=== PATIENT | female | born 1990 | race Caucasian/White ===

== ENCOUNTER 2017-01-03 03:27 | Inpatient (IN) | payer OTHER ==
[2017-01-03] MEDS ORDERED: Dibucaine 1% 28.35 GM TUBE PR PRN (04:36)
[2017-01-03] MEDS ORDERED: Acetaminophen TAB* 325 MG PO PRN (04:36)
[2017-01-03] MEDS ORDERED: Tetan/Diph/Pertus SYR(Tdap)* 0.5 ML SYR(BOOSTRIX) use SYR IM ONE (04:36)
[2017-01-03] MEDS ORDERED: Glycerin ADULT SUPP PR PRN (04:36)
[2017-01-03] MEDS ORDERED: Witch Hazel PAD* JAR TOPICAL PRN (04:36)
[2017-01-03] MEDS ORDERED: Ibuprofen TAB* 600 MG ONE (04:38)
[2017-01-03] MEDS: Ibuprofen TAB* 600 MG PO PRN ×3 (04:43→20:12)
[2017-01-03] MEDS: Docusate CAP* 100 MG PO SCH ×3 (09:40→20:12)
[2017-01-03] MEDS: Simethicone CHEW TAB* 80 MG PO SCH (21:36)
[2017-01-04] MEDS: Ibuprofen TAB* 600 MG PO PRN ×2 (04:38→11:28)
[2017-01-04 07:48] LABS: Hematocrit 34 % (35-47); Hemoglobin 11.3 g/dl (12.0-16.0); Mean Corpuscular HGB Conc 33 g/dl (31-36); Mean Corpuscular Hemoglobin 29 pg (27-31); Mean Corpuscular Volume 89 fL (80-97); Mean Platelet Volume 8 um3 (7.4-10.4); Red Blood Count 3.83 10^6/ul (4.0-5.4); Red Cell Distribution Width 14 % (10.5-15)
[2017-01-04] MEDS ORDERED: Ferrous Gluconate TAB* 324 MG TAB PO SCH (09:00)
[2017-01-04] MEDS: Docusate CAP* 100 MG PO SCH (09:24)
[2017-01-04] MEDS ORDERED: SUMAtriptan SQ* 6 MG/0.5 ML VIAL SUBCUT ONE (10:10)
[2017-01-04 12:06] VITALS: BP 102/62
== END 2017-01-04 14:02 | disposition home or self-care (01) | DRG 775 ==
LOC: MCHOBOUT 03:27 → MCHOB 03:33
PROVIDERS: ADMIT Midwife; ATTEND Midwife
PROC: 10E0XZZ Delivery of Products of Conception, External Approach (ICD-10-PCS; principal; 2017-01-03)
DX: O48.0 Post-term pregnancy (principal); G43.109 Migraine with aura, not intractable, without status migrainosus; O26.893 Other specified pregnancy related conditions, third trimester; O69.81X0 Labor and delivery complicated by cord around neck, without compression, not applicable or unspecified; Z37.0 Single live birth; Z3A.40 40 weeks gestation of pregnancy
CPT/HCPCS: 36415; 85025; A9270-GY; J3030

== ENCOUNTER 2019-11-01 13:56 | Emergency (ER) | payer OTHER ==
--- OUTSIDE RECORDS SUMMARY | 2019-11-01 14:52 | XMS REPORT | Summary of Care ---
:1990 Author Organization [facility] Address [address] [place] [address] Care Team Providers Name Role Phone Leyda Lagos Primary Care Provider Reason for Visit Reason Comments Rash pt presents today due to a rash under right breast. Noticed it 1 wk ago. Encounter Details Date Type Department Care Team Description 09/26/2019 Office Visit [place] [facility] Amos Ely, Tinea versicolor Medicine PA (Primary Dx) [address] [place] [address] [place] [address] [phone] Allergies No Known Allergiesdocumented as of this encounter (statuses as of 09/26/2019) Medications Medication Sig Dispensed Refills Start Date End Date Status Levonorgestrel by Intrauterine 0 Active (MIRENA) 20 MCG/24HR route. Intrauterine IUD sumatriptan (IMITREX) [place] 20 mg in nose 6 Inhaler 1 02/15/2014 Active 20 MG/ACT Nasal ONCE NEEDED SolutionIndications: (headache). Migraines documented as of this encounter (statuses as of 09/26/2019) Active Problems Problem Noted Date Calculus of gallbladder without cholecystitis without obstruction 03/23/2019 Overview: 02/09 - incidental finding Pancreatic cyst 03/23/2019 Migraines 08/10/2011 Overview: Has been under care of [facility] Dr Mckay Dysmenorrhea 10/19/2007 documented as of this encounter (statuses as of 09/26/2019) Immunizations Name Administration Dates Next Due Human Papillomavirus 06/07/2007, 04/03/2007 MENINGOCOCCAL CONJUGATE VACCINE 04/03/2007 TDAP Vaccine 04/03/2007 documented as of this encounter Social History Tobacco Use Types Packs/Day Years Used Date Never Smoker 0 Smokeless Tobacco: Never Used Alcohol Use Drinks/Week oz/Week Comments Yes 1 Glasses of wine 1.0 Sex Assigned at Date Recorded Not on file Job Start Date Occupation Industry Not on file Not on file Not on file Travel History Travel Start Travel End No recent travel history available. documented as of this encounter Last Filed Vital Signs Vital Sign Reading Time Taken Comments Blood Pressure 98/70 09/26/2019 11:08 AM EST Pulse 85 09/26/2019 11:08 AM EST Temperature 36.6 09/26/2019 11:08 AM EST C (97.8 F) Respiratory Rate - - Oxygen Saturation 92% 09/26/2019 11:08 AM EST Inhaled Oxygen Concentration - - Weight 85.7 kg (189 lb) 09/26/2019 11:08 AM EST Height 180.3 cm (5' 11") 09/26/2019 11:08 AM EST Body Mass Index 26.36 09/26/2019 11:08 AM EST documented in this encounter Patient Instructions Patient InstructionsAmos Ely PA - 09/26/2019 11:00 AM ESTPatient Education Tinea Versicolor The Basics Written by the doctors and editors at [facility] What tinea versicolor?Tinea versicolor is a skin infection that causes areas of the skin to change color. The skin might have key carrier patches, darker patches, or both light and dark patches. Tinea versicolor is caused by a fungus. This fungus lives on people's skin and does not cause problems normally. But in some people, the fungus can cause tinea versicolor. This happens more often in people who live where the weather is hot and humid. Even though tinea versicolor is caused by fungus, it does not spread from one person to another. It is not "contagious." What are the symptoms of tinea versicolor?Tinea versicolor often appears as lots of small spots of color that seem to run into each other and form large patches. The colors can vary from white to light brown, dark brown, epstein-black or pinkish red. There can also be a mix of colors. Tinea versicolor usually shows up on the back, chest, or upper arms. It can also happen on the face or in places where the skin rubs together, such as the armpit. People often notice this problem more in the summer when affected areas of the skin stand out because they don't get hanks from the sun. Is there a test for tinea versicolor?Yes. After learning about your symptoms and doingan exam, your doctor or nurse might gently scrape the surface of your skin and look at the scrapingsunder a microscope. This procedure is usually not painful. If you have tinea versicolor, the doctor or nurse will see the fungus that causes the condition in the scrapings from your skin. How is tinea versicolor treated?Most mild cases of tinea versicolor only need a special "shampoo" or cream. The shampoo is used like a soap on the affected skin. If your tinea versicolor covers a large part of your body, or if it doesn't get better with the shampoo or cream, you might need medicine that comes in pills. Your doctor will decide if you need pills. Even after you get treated, your skin might not go back to its normal color for several months. Thisdoes not mean the treatment didn't work. It just takes time for the skin to heal. Can tinea versicolor be prevented?If the tinea versicolor keeps coming back, there areshampoos or medicines that can help prevent it. Your doctor will work with you on the best treatmentplan for your situation. All topics are updated as new evidence becomes available and our peer review process is complete. This topic retrieved from [employer] on: Aug 28, 2019. Topic 18164 Version 4.0 Release: 27.4.5 - C27.318 2019[employer], [employer]. and/or its affiliates.All rights reserved. picture 1: Tinea versicolor on the shoulder and arm Tinea versicolor. Reproduced with permission from: Samra HUDSON. Samra's Photoguide of Common Skin Disorders, 2nd ed, Jaison Armond&Brower, Sunflower 2003. Copyright 2002 Jaison Armond&Brower. Graphic 51531 Version 2.0 picture 2: Tinea versicolor on the back Tinea versicolor can appear as a mixture of colors. Reproduced with permission from: David Barros. [place] of Adult Physical Diagnosis, Jaison Armond&Brower, Sunflower 2005. Copyright 2006 Jaison Armond&Brower. Graphic 15027 Version 2.0 picture 3: Tinea versicolor on the chest Tinea versicolor can appear as dark patches on the skin. Photo courtesy of Juan F Perez MD. Reproduced from: Munoz EK, Koko JA, Justino GA , Chris PS (Eds). Visual Diagnosis in Pediatrics. Sunflower: Jaison Armond&Brower, 2006. Copyright 2006. Graphic 37087 Version 2.0 Consumer Information Use and Disclaimer This information is not specific medical advice and does not replace information you receive from your health care provider. This is only a brief summary of general information. It does NOT include allinformation about conditions, illnesses, injuries, tests, procedures, treatments, therapies, discharge instructions or life-style choices that may apply to you. You must talk with your health care provider for complete information about your health and treatment options. This information should not beused to decide whether or not to accept your health care provider's advice, instructions or recommendations. Only your health care provider has the knowledge and training to provide advice that is right for you.The use of [employer] content is governed by the [employer] Terms of Use. 2019 [employer]. All rights reserved. Copyright [employer]. and/or its affiliates.All rights reserved. documented in this encounter Progress Notes Amos Ely PA - 09/26/2019 11:00 AM EST PATIENT: Ayleen Tinajero : 1990 DATE OF SERVICE: 09/26/2019 REFERRING PRACTITIONER: Self-Referred PRIMARY CARE PROVIDER: Leyda Lagos CHIEF COMPLAINT: Chief Complaint Patient presents with Rash pt presents today due to a rash under right breast. Noticed it 1 wk ago. Subjective HISTORY OF PRESENT ILLNESS: Ayleen Tinajero is a 29-y.o. female who presents for a new visit. Ayleen Tinajero complains of a(n) rash. Patient describes as red. Distribution: Below the breast. Onset: gradual over a few weeks. Symptoms have been unchanged. Ayleen Tinajero reports that the affected area itches. Associated signs and symptoms: no associated symptoms. The patient denies: fever, nausea. Environmental exposures or allergies: nothing specific Previous visits for this problem: none. Treatment to date: none. 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 History pancreatic cyst. Current Outpatient Medications Medication Sig Levonorgestrel (MIRENA) 20 MCG/24HR Intrauterine IUD by Intrauterine route. sumatriptan (IMITREX) 20 MG/ACT Nasal Solution [place] 20 mg in nose ONCE NEEDED (headache). No current facility-administered medications for this visit. No Known Allergies Social History Socioeconomic History Marital status: Single Spouse name: Not on file Number of children: Not on file Years of education: Not on file Highest education level: Not on file Occupational History Not on file Social Needs Financial resource strain: Not on file Food insecurity: Worry: Not on file Inability: Not on file Transportation needs: Medical: Not on file Non-medical: Not on file Tobacco Use Smoking status: Never Smoker Smokeless tobacco: Never Used Substance and Sexual Activity Alcohol use: Yes Alcohol/week: 1.0 standard drinks Types: 1 Glasses of wine per week Drug use: No Sexual activity: Yes Partners: Male Lifestyle Physical activity: Days per week: Not on file Minutes per session: Not on file Stress: Not on file Relationships Social connections: Talks on phone: Not on file Gets together: Not on file Attends denominational service: Not on file Active member of club or organization: Not on file Attends meetings of clubs or organizations: Not on file Relationship status: Not on file Intimate partner violence: Fear of current or ex partner: Not on file Emotionally abused: Not on file Physically abused: Not on file Forced sexual activity: Not on file Other Topics Concern Back Care Not Asked Bike Helmet Not Asked Blood Transfusions Not Asked Caffeine Concern Not Asked Exercise Yes Comment: runs 3-4 days per week Hobby Hazards Not Asked International Travel Not Asked Service Not Asked Occupational Exposure Not Asked Seat Belt Not Asked Self-Exams Not Asked Sleep Concern Not Asked Special Diet No Stress Concern No Weight Concern No Social History Narrative . Lives in [facility] area Works at [employer] REVIEW OF SYSTEMS: CONSTITUTIONAL: negative for fevers, chills, sweats and fatigue. INTEGUMENT/BREAST: positive for rash, negative for breast lump, nipple discharge and breast tenderness. Objective PHYSICAL EXAMINATION: GENERAL: alert, oriented, no acute distress. GENERAL SKIN: Skin warm and dry. Below left breast fold shows a small patch of non-scaling, non-raised erythematous lesions, consistent with that of tinea versicolor. IMPRESSION: ICD-9-CM ICD-10-CM 1. Tinea versicolor 111.0 B36.0 Plan PLAN: Advised to use selenium sulfide shampoo or lotion on the region to function as an antifungal. She has also been told to use a drying powder and to air the region as much as possible, given fungal infections develop as a result of warm , wet areas. Follow up: Schedule follow-up here as needed if symptoms worsen. Author: PIYUSH Sanchez 09/26/2019 11:55 documented in this encounter Plan of Treatment Health Maintenance Due Date Last Done Comments HPV IMMUNIZATION SERIES (3 - 10/03/2007 06/07/2007, Female 3-dose series) 04/03/2007 INFLUENZA VACCINE (#1) 2019 DEPRESSION SCREENING 03/23/2020 03/23/2019 LIPID DISORDER SCREENING 07/28/2024 07/28/2019, 02/01/2019 MENINGOCOCCAL VACCINE IMM Completed 04/03/2007 PNEUMOCOCCAL 0-64 YRS Aged Out No longer eligible based on patient's age to complete this topic documented as of this encounter Results Not on filedocumented in this encounter Visit Diagnoses Diagnosis Tinea versicolor - Primary Pityriasis versicolor documented in this encounter Insurance Payer Benefit Plan / Subscriber ID Effective Dates Phone Address Type Group AET[employer] COMMERCIAL AETNA xxxxxxxxxx 2018-Present A[employer] (Work) documented as of this encounter
--- OUTSIDE RECORDS SUMMARY | 2019-11-01 14:52 | XMS REPORT | Summary of Care ---
:1990 Author Organization [facility] Address [address] [place] [address] Care Team Providers Name Role Phone Anne Lagosh Primary Care Provider Reason for Referral Refer to Department Only (Routine) Status Reason Specialty Diagnoses / Referred By Referred To Procedures Contact Contact Pending Review Diagnoses Cystic mass of pancreas Mariana Schwartz NP [address] [place] [address] Scheduling Instructions Is the patient on cpap machine?No Is the patient on oxygen?No BP 100/70 | Pulse 72 | Temp 98.6 F (37 C) | Ht 5' 11" (1.803 m) | Wt 188 lb (85.3 kg) | BMI 26.22 kg/m BMI Readings from Last 4 Encounters: 09/25/19 : 26.22 kg/m 09/18/19 : 26.27 kg/m 03/23/19 : 26.50 kg/m 02/28/19 : 26.08 kg/m Controlled Substance Medications: Anticoagulant Medications: Psychiatric/Antianxiety Medications: Antiretroviral Medications: Reason for Visit Reason Comments Follow-up Follow-up to recent EUS. Encounter Details Date Type Department Care Team Description 09/25/2019 Office Visit Robert Schwartz Pancreatic cyst (Primary Dx); Gastroenterology/Hepa Mariana Baeza NP Cystic mass of pancreas tology 1 [facility] [address] [facility] [place] [id number] [place] [address] [phone] Allergies No Known Allergiesdocumented as of this encounter (statuses as of 09/25/2019) Medications Medication Sig Dispensed Refills Start Date End Date Status Levonorgestrel by Intrauterine 0 Active (MIRENA) 20 MCG/24HR route. Intrauterine IUD sumatriptan (IMITREX) [place] 20 mg in nose 6 Inhaler 1 02/15/2014 Active 20 MG/ACT Nasal ONCE NEEDED SolutionIndications: (headache). Migraines documented as of this encounter (statuses as of 09/25/2019) Active Problems Problem Noted Date Calculus of gallbladder without cholecystitis without obstruction 03/23/2019 Overview: 02/09 - incidental finding Pancreatic cyst 03/23/2019 Migraines 08/10/2011 Overview: Has been under care of [facility] Mckay Dysmenorrhea 10/19/2007 documented as of this encounter (statuses as of 09/25/2019) Immunizations Name Administration Dates Next Due Human [...] Sign Reading Time Taken Comments Blood Pressure 100/70 09/25/2019 1:55 PM EST Pulse 72 09/25/2019 1:55 PM EST Temperature 37 09/25/2019 1:55 PM EST C (98.6 F) Respiratory Rate - - Oxygen Saturation - - Inhaled Oxygen Concentration - - Weight 85.3 kg (188 lb) 09/25/2019 1:55 PM EST Height 180.3 cm (5' 11") 09/25/2019 1:55 PM EST Body Mass Index 26.22 09/25/2019 1:55 PM EST documented in this encounter Patient Instructions Patient InstructionsMariana Schwartz J, MEDIA CLERK - 09/25/2019 2:[address] referral for second opinion at [facility] as discussed 2. Follow up here based on the above If you have not already been screened for Hepatitis C we would be happy to do that for you today. Currently we recommend screening for hepatitis C virus (HCV ) infection in persons at high risk for infection, and to adults born between 1945 and 1965. Thank you for choosing the [facility] for your needs today! -Mariana Schwartz N.P. , Please call if you need to cancel or change your appt. time. Thank you for choosing [facility] for your health care needs, and for consulting with [facility] today. You may receive a survey following this visit, or after an upcoming hospital stay. As easy as it is to feel overloaded with surveys, we are required to send them out randomly and they do provide important feedback so that we may serve your needs in the best way. Please do take the few minutes required to complete the survey if you receive one. We get them too, after seeing the doctor, and they only take a few minutes to complete. documented in this encounter Progress Notes Mariana Schwartz NP - 09/25/2019 2:00 PM EST PATIENT: Ayleen Tinajero : 1990 DATE OF SERVICE: 09/25/2019 REFERRING PRACTITIONER: Mariana Schwartz PRIMARY CARE PROVIDER: Leyda Lagos CHIEF COMPLAINT: Chief Complaint Patient presents with Follow-up Follow-up to recent EUS. Subjective HISTORY OF PRESENT ILLNESS: Ayleen Tinajero is a 29-y.o. female who presents for follow-up of recent EUS in follow up of a pancreatic lesion found on imaging studies. EUS 09/18/2019 findings "Impression- There was no sign of significant pathology in the ampulla. - One stone was visualize endosonographically in the gallbladder. - There was no evidence of significant pathology inthevisualized portion of the liver. - A mass was identified in the pancreatic head. Cytology results are pending. However, the endosonographic appearance is consistent with a serous cystadenoma. This was staged T2 N0 Mx by endosonographic criteria. The staging applies if malignancy is confirmed. Fine needle aspiration performed. - Endosonographic images of the spleen were unremarkable." Pathology of the FNA of pancreatic lesion: FINAL DIAGNOSIS Pancreatic head mass; fine needle aspiration cytology: Satisfactory for evaluation. Negative for malignant cells. Immediate Assessment Pass#1: benign acinar tissue and blood Pass#2: benign acinar tissue and blood Preliminary diagnosis: Benign 08/17/2019 MR abdomen "IMPRESSION: Pancreatic head lesion again seen, not significantly changed in size since prior MRI dated February 09, 2019 with no pancreatic duct dilatation. 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 Denies abdominal pain, heartburn, dysphagia, fatigue, nausea, vomiting, melena, hamatemesis, hematochezia, constipation, diarrhea, jaundice, fevers, chills, night sweats, weight loss, easy bruising, chest pain, shortness of breath, dysuria, hematuria, pyuria, joint pains, acholic stools, dark urine orsystemic pruritis. Current Outpatient Medications Medication Sig Levonorgestrel (MIRENA) 20 MCG/24HR Intrauterine IUD by Intrauterine route. sumatriptan (IMITREX) 20 MG/ACT Nasal Solution [place] 20 mg in nose ONCE NEEDED (headache). No current facility-administered medications for this visit. No Known Allergies REVIEW OF SYSTEMS: All remaining review of systems was negative except for as noted in the history of present illness/subjective. Objective PHYSICAL EXAMINATION: VITALS: BP 100/70 | Pulse 72 | Temp 98.6 F (37 C) | Ht 5' 11" ( 1.803 m) | Wt 188 lb (85.3 kg) | BMI 26.22 kg/m Body mass index is 26.22 kg/m. GENERAL: alert, oriented, no acute distress. HEENT: No scleral icterus, MMM Psych: Affect normal Neck: no lymphadenopathy LUNGS: clear to auscultation bilaterally. HEART: regular rhythm, no murmurs, no gallops, no rubs. ABDOMEN: general exam: soft, non-tender, non-distended, without masses or organomegaly, normal active bowel sounds, Rodgers's sign negative. Extrmities: no edema Skin: clear Neuro: gait normal, a&o x 3 RECTAL: exam deferred. IMPRESSION: ICD-9-CM ICD-10-CM 1. Pancreatic cyst 577.2 K86.2 2. Cystic mass of pancreas 577.2 K86.2 REFER TO GI Plan PLAN: Patient Instructions 1. Will place referral for second opinion at [facility] as discussed 2. Follow up here based on the above If you have not already been screened for Hepatitis C we would be happy to do that for you today. Currently we recommend screening for hepatitis C virus (HCV ) infection in persons at high risk for infection, and to adults born between 1945 and 1965. Thank you for choosing the [facility] for your needs today! -Mariana Schwartz N.P. , Please call if you need to cancel or change your appt. time. Thank you for choosing [facility] for your health care needs, and for consulting with [facility] today. You may receive a survey following this visit, or after an upcoming hospital stay. As easy as it is to feel overloaded with surveys, we are required to send them out randomly and they do provide important feedback so that we may serve your needs in the best way. Please do take the few minutes required to complete the survey if you receive one. We get them too, after seeing the doctor, and they only take a few minutes to complete. Author: Mariana Schwartz NP 09/25/2019 14:20 documented in this encounter Plan of Treatment Date Type Specialty Care Team Description 09/26/2019 Office Visit Internal Medicine Amos Ely, [address] [place] [address] [phone] Name Type Priority Associated Diagnoses Order Schedule REFER TO GI Referral Routine Cystic mass of pancreas Expected: 09/25/2019, Expires: 09/25/2020 Health Maintenance Due Date Last Done Comments [...] filedocumented in this encounter Visit Diagnoses Diagnosis Pancreatic cyst - Primary Cyst and pseudocyst of pancreas Cystic mass of pancreas documented in this encounter Insurance Payer Benefit Plan / Subscriber ID Effective Dates Phone Address Type Group A[employer] COMMERCIAL AETNA xxxxxxxxxx 2018-Present [employer] (Work) documented as of this encounter
--- OUTSIDE RECORDS SUMMARY | 2019-11-01 14:52 | XMS REPORT | Summary of Care ---
:1990 Author Organization [facility] Address [address] [place] [address] Care Team Providers Name Role Phone Radha Lagos Primary Care Provider Reason for Visit Auth/Cert Status Reason Specialty Diagnoses / Procedures Referred By Referred To Contact Contact Diagnoses Abnormal findings on diagnostic imaging of other abdominal regions, including retroperitoneum Cyst of pancreas Procedures IL ESOPHAGOGASTRODUODENOSCOPY TRANSORAL DIAGNOSTIC IL EGD TRANSORAL BIOPSY SINGLE/MULTIPLE IL EGD INTRMURAL NEEDLE ASPIR/BIOP ALTERED ANATOMY IL EDG US EXAM SURGICAL ALTER STOM DUODENUM/JEJUNUM IL ERCP DX COLLECTION SPECIMEN BRUSHING/WASHING IL ERCP W/BIOPSY SINGLE/MULTIPLE IL ERCP REMOVE CALCULI/DEBRIS BILIARY/PANCREAS DUCT Encounter Details Date Type Department Care Team Description 09/18/2019 Hospital Encounter [facility] Rin Ray Short Procedure [address] [place] [id number] [address] [phone] [place] [address] [phone] Allergies No Known Allergiesdocumented as of this encounter (statuses as of 09/19/2019) Medications Medication Sig Dispensed Refills Start Date End Date Status Levonorgestrel by Intrauterine 0 Active (MIRENA) 20 MCG/24HR route. Intrauterine IUD sumatriptan (IMITREX) [place] 20 mg in nose 6 Inhaler 1 02/15/2014 Active 20 MG/ACT Nasal ONCE NEEDED SolutionIndications: (headache). Migraines documented as of this encounter (statuses as of 09/19/2019) Active Problems Problem Noted Date Calculus of gallbladder without cholecystitis without obstruction 03/23/2019 Overview: 02/09 - incidental finding Pancreatic cyst 03/23/2019 Migraines 08/10/2011 Overview: Has been under care of eddie - Dr Mckay Dysmenorrhea 10/19/2007 documented as of this encounter (statuses as of 09/19/2019) Immunizations Name Administration Dates Next Due Human [...] Sign Reading Time Taken Comments Blood Pressure 106/77 09/18/2019 2:05 PM EST Pulse 80 09/18/2019 2:05 PM EST Temperature 36.8 09/18/2019 2:05 PM EST C (98.2 F) Respiratory Rate 20 09/18/2019 2:05 PM EST Oxygen Saturation 99% 09/18/2019 2:05 PM EST Inhaled Oxygen Concentration - - Weight 85.4 kg (188 lb 6 oz) 09/18/2019 11:33 AM EST Height 180.3 cm (5' 11") 09/18/2019 11:33 AM EST Body Mass Index 26.27 09/18/2019 11:33 AM EST documented in this encounter Discharge Summaries Rin Ray MD - 09/18/2019 12:55 PM ESTGUTHRIE SP/OP DISCHARGE NOTE [address] [place] [address] Patient: Ayleen Tinajero Procedure Date: 09/18/2019 Principle Diagnosis: Serous cyst adenoma Associated Condition(s): Same as Pre-op Procedure: EGD; endoscopic ultrasound (EUS); fine needle aspiration (FNA). Mental Status: Unchanged from preoperative condition; alert and oriented unless otherwise indicated. Condition: Stable, unless otherwise indicated. Diet: Resume routine diet as instructed unless otherwise indicated. Activity: ad fuad Length of disability: Not applicable Suture Removal: Not applicable Wound Care: Not applicable Medications: See Med Rec Other Comments: See printed reports from [facility] for additional information. Author: Rin Ray MD Date: 09/18/2019 documented in this encounter Plan of Treatment Date Type Specialty Care Team Description 09/25/2019 Office Visit Gastroenterology Mariana Grullon, PERIODICALS CLERK [address] [place] [place] [address] [phone] Name Type Priority Associated Diagnoses Date/Time FINE NEEDLE ASPIRATION Lab Routine Mass of pancreas 09/18/2019 12:44 PM EST Name Type Priority Associated Order Schedule Diagnoses EUS Diagnostic/Surgical Routine TOMORROW - GENERAL Procedures USE for 1 Occurrences starting 09/18/2019 until 09/18/2019 GLUCOSE (POCT) Automated POCT Routine X1 for 1 Occurrences starting 09/18/2019 until 09/18/2019 FINE NEEDLE Lab Routine Mass of pancreas Release Upon ASPIRATION Ordering for 1 Occurrences starting 09/18/2019, 1 completed Health Maintenance Due Date Last Done Comments HPV IMMUNIZATION SERIES (3 - 10/03/2007 06/07/2007, Female 3-dose series) 04/03/2007 INFLUENZA VACCINE (#1) 2019 DEPRESSION SCREENING 03/23/2020 03/23/2019 LIPID DISORDER SCREENING 07/28/2024 07/28/2019, 02/01/2019 MENINGOCOCCAL VACCINE IMM Completed 04/03/2007 PNEUMOCOCCAL 0-64 YRS Aged Out No longer eligible based on patient's age to complete this topic documented as of this encounter Procedures Procedure Name Priority Date/Time Associated Comments Diagnosis ENDOSCOPY UPPER GI Planned Trip to 09/18/2019 12:00 OR PM EST ENDOSCOPIC ULTRASOUND Planned Trip to 09/18/2019 12:00 OR PM EST SIGN PERMIT 09/18/2019 12:00 PM EST UPPER GI ENDOSCOPY Routine 09/18/2019 11:58 Results for REPORT AM EST this procedure are in the results section. EUS Routine 09/18/2019 11:58 Results for AM EST this procedure are in the results section. URINE (POCT) Routine 09/18/2019 11:17 Results for AM EST this procedure are in the results section. US TRANSESOPHAGEAL Routine 09/18/2019 11:00 Results for ENDOSCOPIC AM EST this procedure are in the results section. documented in this encounter Results UPPER GI ENDOSCOPY REPORT (09/18/2019 11:58 AM EST) Upper GI endoscopy [facility] __ Patient Name: Ayleen Tinajero Procedure Date: 09/18/2019 11:58 AM Date of : 1990 Admit Type: Outpatient Age: 29 Room: OR Gender: Female Note Status: Finalized Attending MD: RIN RAY MD Instrument Name: [id number] [id number] __ Procedure: Upper GI endoscopy Indications: Heartburn, Epigastric abdominal pain Providers: RIN RAY MD, RENE ROBERSON MD, Alessandra Bolanos RN (Nurse), Blessing Benitez (Nurse) Referring MD: MARIANA GRULLON NP (Referring MD) Medicines: Monitored Anesthesia Care Complications: No immediate complications. Estimated blood loss: None. __ Procedure: Pre-Anesthesia Assessment: - Prior to the procedure, a History and Physical was performed, and patient medications, allergies and sensitivities were reviewed. The patient's tolerance of previous anesthesia was reviewed. - The risks and benefits of the procedure and the sedation options and risks were discussed with the patient. All questions were answered and informed consent was obtained. - Patient identification and proposed procedure were verified prior to the procedure. The procedure was verified in the procedure room. The patient's current medications and allergies were reviewed and recorded in the nurses notes. The patient was made aware of the risk of the procedure which can include: bleeding, infection, perforation, an adverse reaction to sedation, and a risk of missed lesions, among others. The patient appeared to understand. An opportunity for questions was provided, and an informed consent form was signed. The scope was passed under direct vision. Throughout the procedure, the patient's blood pressure, pulse EKG, and oxygen saturations were monitored continuously. The Endoscope was introduced through the mouth, and advanced to the third part of duodenum. COMMENT: UNREMARKABLE EXAMINATION. The upper GI endoscopy was accomplished without difficulty. The patient tolerated the procedure well. Findings: The esophagus was normal. The stomach was normal. The examined duodenum was normal. Impression: - Normal esophagus. - Normal stomach. - Normal examined duodenum. - No specimens collected. Recommendation: - Discharge patient to home. - Patient has a contact number available for emergencies. The signs and symptoms of potential delayed complications were discussed with the patient. Return to normal activities tomorrow. Written discharge instructions were provided to the patient. - Resume previous diet. - Continue present medications. Procedure Code(s): --- Professional --- 94505, GC, Esophagogastroduodenoscopy, flexible, transoral; diagnostic, including collection of specimen(s) by brushing or washing, when performed (separate procedure) Diagnosis Code(s): --- Professional --- R12, Heartburn R10.13, Epigastric pain CPT copyright 2017 [place] [employer]. All rights reserved. The codes documented in this report are preliminary and upon mural artist review may be revised to meet current compliance requirements. Attending Participation: I personally performed the entire procedure. RIN RAY MD 09/18/2019 12:23:51 PM This report has been signed electronically. Number of Addenda: 0 Note Initiated On: 09/18/2019 11:58 AM CC Letter to: RADHA LAGOS MD (CC) Specimen Performing Organization Address City/State/Zipcode Phone Number HOMA EUS (09/18/2019 11:58 AM EST) Upper EUS [facility] __ Patient Name: Ayleen Tinajero Procedure Date: 09/18/2019 11:58 AM Date of : 1990 Admit Type: Outpatient Age: 29 Room: OR Gender: Female Note Status: Finalized Attending MD: RIN RAY MD Instrument Name: [id number] GF UE 160-AL5 EUS RADIAL,0748 GF UC 140P-AL5 LINEAR __ Procedure: Upper EUS Indications: Suspected mass in pancreas on MRI Providers: RIN RAY MD, Alessandra Bolanos, JIMMY (Nurse), Blessing Benitez (Nurse) Referring MD: MARIANA GRULLON NP (Referring MD) Medicines: Monitored Anesthesia Care Complications: No immediate complications. Estimated blood loss: None. __ Procedure: Pre-Anesthesia Assessment: - Prior to the procedure, a History and Physical was performed, and patient medications, allergies and sensitivities were reviewed. The patient's tolerance of previous anesthesia was reviewed. - The risks and benefits of the procedure and the sedation options and risks were discussed with the patient. All questions were answered and informed consent was obtained. - Patient identification and proposed procedure were verified prior to the procedure. The procedure was verified in the procedure room. After obtaining informed consent, the endoscope was passed under direct vision. Throughout the procedure, the patient's blood pressure, pulse, and oxygen saturations were monitored continuously. The Endosonoscope was introduced through the mouth, and advanced to the fourth part of duodenum. The Endosonoscope was introduced through the mouth, and advanced to the fourth part of duodenum. The upper EUS was accomplished without difficulty. The patient tolerated the procedure well. COMMENT: FINDINGS ON SONOGRAPHY AND FNA PRELIMINARY VIEW CONSISTENT WITH SEROUS CYST ADENOMA. BLAD CELLS AND STROMAL ELEMENTS IN A SEA OF RED CELLS. Findings: ENDOSONOGRAPHIC FINDING: : There was no sign of significant endosonographic abnormality in the ampulla. No masses, no cysts, no calcifications and no wall thickening were identified. One stone was visualized endosonographically in the gallbladder. The stone measured 8 mm in greatest dimension. The stone was round. It was hyperechoic and characterized by shadowing. There was no sign of significant endosonographic abnormality in the visualized portion of the liver. No focal pathology was identified. A round mass was identified in the pancreatic head. The mass was hypoechoic and mixed solid and cystic. The mass measured 39 mm by 49 mm in maximal cross-sectional diameter. The endosonographic borders were well-defined. The remainder of the pancreas was examined. The endosonographic appearance of parenchyma and the upstream pancreatic duct indicated that the remainder of the pancreas was unremarkable. Fine needle aspiration for cytology was performed. Color Doppler imaging was utilized prior to needle puncture to confirm a lack of significant vascular structures within the needle path. Two passes were made with the 25 gauge needle using a transduodenal approach. A stylet was used. A senior chemist was present and performed a preliminary cytologic examination. The cellularity of the specimen was adequate. Final cytology results are pending. Verification of patient identification for the specimen was done by the physician and nurse using the patient's name and date. Estimated blood loss was minimal. There was no sign of significant endosonographic abnormality in the visualized portion of the spleen. No focal pathology was identified. The region of the celiac plexus and celiac ganglia was visualized and showed no sign of significant endosonographic abnormality. The vascular anatomy of the region was normal. Impression: - There was no sign of significant pathology in the ampulla. - One stone was visualized endosonographically in the gallbladder. - There was no evidence of significant pathology in the visualized portion of the liver. - A mass was identified in the pancreatic head. Cytology results are pending. However, the endosonographic appearance is consistent with a serous cystadenoma. This was staged T2 N0 Mx by endosonographic criteria. The staging applies if malignancy is confirmed. Fine needle aspiration performed. - Endosonographic images of the spleen were unremarkable. Recommendation: - Discharge patient to home when stable - Continue present medications unless instructed otherwise - Follow-up with the referring practitioner - Resume typical diet - Rest today - Contact your doctor or come to the emergency department if you experience: - worsening abdominal pain - fever greater than 101.5 degrees - persistent nausea, vomiting - any blood in stool or vomiting of blood - chills, sweats, or other symptoms that persist Procedure Code(s): --- Professional --- 79699, Esophagogastroduodenoscopy, flexible, transoral; with transendoscopic ultrasound-guided intramural or transmural fine needle aspiration/biopsy(s), (includes endoscopic ultrasound examination limited to the esophagus, stomach or duodenum, and adjacent structures) Diagnosis Code(s): --- Professional --- K80.20, Calculus of gallbladder without cholecystitis without obstruction K86.89, Other specified diseases of pancreas R93.3, Abnormal findings on diagnostic imaging of other parts of digestive tract CPT copyright 2017 [place] [employer]. All rights reserved. The codes documented in this report are preliminary and upon mural artist review may be revised to meet current compliance requirements. Attending Participation: I personally performed the entire procedure. RIN RAY MD 09/18/2019 1:04:16 PM This report has been signed electronically. Number of Addenda: 0 Note Initiated On: 09/18/2019 11:58 AM CC Letter to: RADHA LAGOS MD (CC) Specimen Performing Organization Address City/State/Zipcode Phone Number [facility] URINE (POCT) (09/18/2019 11:17 AM EST) Urine Test negative POINT OF CARE (POCT) TESTING Qualitative Urine acceptable POINT OF CARE HCG Internal Control Comment: TESTING (POCT) Performed at: [facility] POCT Sukhjinder Avendano MD, Laboratory Bacteriologist Food [address] [address] Specimen Performing Organization Address City/State/Zipcode Phone Number POINT OF CARE TESTING US TRANSESOPHAGEAL ENDOSCOPIC (09/18/2019 11:00 AM EST) Specimen Narrative Performed At Please see performing physicians notes for results of this exam. [facility] POCT Performing Organization Address [facility] Phone Number [facility] POCT [address] [place] [address] documented in this encounter Visit Diagnoses Diagnosis Mass of pancreas Unspecified disease of pancreas documented in this encounter Administered Medications Medication Order MAR Action Action Date Dose Rate Site lactated ringers IV Intravenous, at 100 mL/hr, PRU CONTINUOUS, Starting Tue09/18/19 at 1310, Until Tue09/18/19 at 1626, 4 Recovery, PRU, ondansetron (ZOFRAN) injection 4 mg 4 mg, Intravenous Push, PRU X1 PRN, 1 dose, Starting Tue09/18/19 at 1306, Until Tue09/18/19 at 1626, Nausea/Vomiting - IV - 1st line - If immediate effect required or patient cannot tolerate PO, 4 Recovery documented in this encounter Insurance Payer Benefit Plan / Subscriber ID Effective Dates Phone Address Type Group [employer]CIAL AETNA xxxxxxxxxx 2018-Present [employer] (Work) documented as of this encounter
[2019-11-01] MEDS ORDERED: Acetaminophen TAB* 325 MG PO ONE (15:38)
[2019-11-01] MEDS ORDERED: Ondansetron ODT TAB* 4 MG PO ONE (15:38)
[2019-11-01 15:55] LABS: ABS Lymphocytes 1.5 10^3/ul (1.0-4.8); ABS Monocytes 0.6 10^3/ul (0-0.8); ABS Neutrophils 3.7 10^3/ul (1.5-7.7); Eosinophil % 0.2 %; Hematocrit 41 % (35-47); Hemoglobin 13.9 g/dL (12.0-16.0); Lymphocyte % 25.1 %; Mean Corpuscular HGB Conc 34 g/dL (31-36); Mean Corpuscular Hemoglobin 30 pg (27-31); Mean Corpuscular Volume 87 fL (80-97); Mean Platelet Volume 8.7 fL (7.4-10.4); Nucleated Red Blood Cells % 0.1; Platelet Count 215 10^3/uL (150-450); Red Blood Count 4.66 10^6 /uL (3.70-4.87); Red Cell Distribution Width 13 % (10-15); White Blood Count 5.8 10^3/uL (3.5-10.8)
[2019-11-01 16:12] LABS: ALT 20 U/L (7-52); AST 23 U/L (13-39); Albumin 4.6 g/dL (3.2-5.2); Albumin/Globulin Ratio 1.3 (1-3); Alkaline Phosphatase 57 U/L (34-104); Anion Gap 9 mmol/L (2-11); BUN/Creatinine Ratio 12.3 (8-20); Blood Urea Nitrogen 10 mg/dL (6-24); CO2 Carbon Dioxide 23 mmol/L (22-32); Calcium 8.7 mg/dL (8.6-10.3); Chloride 102 mmol/L (101-111); EGFR African American 99.8 (>60); EGFR Non-African American 82.5 (>60); Globulin 3.6 g/dL (2-4); Glucose 93 mg/dL (70-100); Potassium 3.8 mmol/L (3.5-5.0); Sodium 134 mmol/L (135-145); Total Protein 8.2 g/dL (6.4-8.9)
[2019-11-01 16:16] LABS: HCG Pregnancy < 0.60 mIU/mL
[2019-11-01] MEDS ORDERED: NS 0.9% 1000 ML** 1,000 ML IV ONE (17:03)
--- NOTE | 2019-11-01 17:35 | ED ---
HPI Febrile Illness - HPI Summary HPI Summary: 29-year-old female presents flu for the past two days. She got sick on Tuesday and was diagnosed with the flu. she took tamiflu and felt worse. She became very nauseous and developed abdominal pain. she states she has not been able to keep anything down. She's been having cough. Cough has been about the same. She admits to sinus congestion. Has a headache. States feels very weak and dizzy. She has all over muscle aches. Has no medical conditions. - History of Current Complaint Chief Complaint: EDFluSymptoms Time Seen by Provider: 11/01/19 16:47 Hx Last Menstrual Period: 22 weeks ago Pain Intensity: 6 - Allergy/Home Medications Allergies/Adverse Reactions: Allergies Allergy/AdvReac Type Severity Reaction Status Date / Time chocolate flavor Allergy Headache Verified 01/21/19 19:00 passion fruit Allergy Headache Uncoded 01/21/19 19:00 pomegranite Allergy Headache Uncoded 01/21/19 19:00 red dye 40 Allergy Headache Uncoded 01/21/19 19:00 PMH/Surg Hx/FS Hx/Imm Hx Endocrine/Hematology History: Denies: Hx Diabetes, Hx Thyroid Disease Cardiovascular History: Denies: Hx Congestive Heart Failure, Hx Hypertension Respiratory History: Denies: Hx Asthma, Hx Chronic Obstructive Pulmonary Disease (COPD) GI History: Denies: Hx Ulcer History: Denies: Hx Renal Disease Musculoskeletal History: Denies: Hx Gout Sensory History: Denies: Hx Eye Prosthesis, Hx Legally Blind, Hx Deafness Opthamlomology History: Denies: Hx Eye Prosthesis, Hx Legally Blind Neurological History: Reports: Hx Migraine - Surgical History Surgery Procedure, Year, and Place: wisdom tooth extracted - 2014 - Immunization History Date of Tetanus Vaccine: unknown Date of Influenza Vaccine: UTD Immunizations Up to Date: Yes Infectious Disease History: Yes Infectious Disease History: Reports: Traveled Outside the [place] in Last 30 Days Denies: Hx Clostridium Difficile, Hx Hepatitis, Hx Human Immunodeficiency Virus (HIV), Hx of Known/Suspected MRSA, Hx Shingles, Hx Tuberculosis, Hx Known/ Suspected VRE, Hx Known/Suspected VRSA, History Other Infectious Disease - Family History Known Family History: Positive: None, Diabetes, Other - Migraine, Parkinsons Disease - Social History Alcohol Use: None Substance Use Type: Reports: None Smoking Status (MU): Never Smoked Tobacco Review of Systems Positive: Fever Negative: Chest Pain Positive: Cough. Negative: Shortness Of Breath Positive: Abdominal Pain, Vomiting, Nausea All Other Systems Reviewed And Are Negative: Yes Physical Exam Triage Information Reviewed: Yes Vital Signs On Initial Exam: Initial Vitals Temp Pulse Resp BP Pulse Ox 99.1 F 104 18 114/84 100 11/01/19 14:00 11/01/19 14:00 11/01/19 14:00 11/01/19 14:00 11/01/19 14:00 Vital Signs Reviewed: Yes Appearance: Positive: Well-Appearing Skin: Positive: Warm, Dry Head/Face: Positive: Normal Head/Face Inspection Eyes: Positive: Normal, EOMI, CHANI, Conjunctiva Clear ENT: Positive: Normal ENT inspection, Pharynx normal, TMs normal Respiratory/Lung Sounds: Positive: Clear to Auscultation, Breath Sounds Present Cardiovascular: Positive: Normal, RRR Abdomen Description: Positive: Nontender, Soft Bowel Sounds: Positive: Present Musculoskeletal: Positive: Normal Neurological: Positive: Normal Psychiatric: Positive: Normal Procedures - Sedation Patient Received Moderate/Deep Sedation with Procedure: No Diagnostics - Vital Signs Vital Signs Temp Pulse Resp BP Pulse Ox 11/01/19 16:58 22 11/01/19 16:27 100.7 F 105 18 117/74 100 11/01/19 15:37 100.4 F 116 18 133/93 100 11/01/19 14:00 99.1 F 104 18 114/84 100 - Laboratory Lab Results: Lab Results 11/01/19 11/01/19 Range/Units 15:27 15:34 WBC 5.8 (3.5-10.8) 10^3/uL RBC 4.66 (3.70-4.87) 10^6 /uL Hgb 13.9 (12.0-16.0) g/dL Hct 41 (35-47) % MCV 87 (80-97) fL MCH 30 (27-31) pg MCHC 34 (31-36) g/dL RDW 13 (10-15) % Plt Count 215 (150-450) 10^3/uL MPV 8.7 (7.4-10.4) fL Neut % (Auto) 63.9 % Lymph % (Auto) 25.1 % [place] % (Auto) 10.0 % Eos % (Auto) 0.2 % Baso % (Auto) 0.8 % Absolute Neuts (auto) 3.7 (1.5-7.7) 10^3/ul Absolute Lymphs (auto) 1.5 (1.0-4.8) 10^3/ul Absolute Monos (auto) 0.6 (0-0.8) 10^3/ul Absolute Eos (auto) 0.0 (0-0.6) 10^3/ul Absolute Basos (auto) 0.0 (0-0.2) 10^3/ul Absolute Nucleated RBC 0.0 10^3/ul Nucleated RBC % 0.1 Sodium 134 L (135-145) mmol/L Potassium 3.8 (3.5-5.0) mmol/L Chloride 102 (101-111) mmol/L Carbon Dioxide 23 (22-32) mmol/L Anion Gap 9 (2-11) mmol/L BUN 10 (6-24) mg/dL Creatinine 0.81 (0.51-0.95) mg/dL Est GFR ( Amer) 99.8 (>60) Est GFR (Non-Af Amer) 82.5 (>60) BUN/Creatinine Ratio 12.3 (8-20) Glucose 93 (70-100) mg/dL Calcium 8.7 (8.6-10.3) mg/dL Total Bilirubin 0.40 (0.2-1.0) mg/dL AST 23 (13-39) U/L ALT 20 (7-52) U/L Alkaline Phosphatase 57 (34-104) U/L Total Protein 8.2 (6.4-8.9) g/dL Albumin 4.6 (3.2-5.2) g/dL Globulin 3.6 (2-4) g/dL Albumin/Globulin Ratio 1.3 (1-3) Beta HCG, Quant < 0.60 mIU/mL Result Diagrams: 11/01/19 15:27 11/01/19 15:34 Lab Statement: Any lab studies that have been ordered have been reviewed, and results considered in the medical decision making process. Re-Evaluation - Re-Evaluation First Eval Re-Evaluation Time: 17:40 Change: Improved Comment: able to tolerate oral fluids Course/Dx - Course Course Of Treatment: 29-year-old female presents flu for the past two days. She got sick on Tuesday and was diagnosed with the flu. she took tamiflu and felt worse. She became very nauseous and developed abdominal pain. she states she has not been able to keep anything down. She's been having cough. Cough has been about the same. She admits to sinus congestion. Has a headache. States feels very weak and dizzy. She has all over muscle aches. Has no medical conditions. On exam appears ill. lungs CTA. abd soft nontender. Labs without significant abnormality. Attempted IV and patient declined. Tolerated Zofran and was able to drink fluids in the room. Patient states she is feeling better. We'll discharge with Zofran. Patient understands and agrees the plan. - Febrile Illness Differential Diagnoses: Pneumonia, Sepsis, Viremia - Diagnoses Provider Diagnoses: Influenza Discharge ED - Sign-Out/Discharge Documenting (check all that apply): Patient Departure - Discharge Plan Condition: Good Disposition: HOME Prescriptions: Ondansetron ODT TAB* [Zofran 4 MG Odt TAB*] 4 - 8 mg PO Q6H PRN #20 tab.odt PRN Reason: Nausea Patient Education Materials: Influenza (ED) Forms: *Work Release Referrals: Leyda Lagos MD [Primary Care Provider] - Additional Instructions: take up to two tablets zofran every 6 hours Take Tylenol and ibuprofen for muscle aches and fever every 6 hours Saline rinse can be used multiple times a day for nasal congestion Drink plenty of fluids Follow up with primary within 5 days Return to ED if develop any new or worsening symptoms - Billing Disposition and Condition Condition: GOOD Disposition: Home
[2019-11-01 18:00] VITALS: BP 118/68
== END 2019-11-01 18:00 | disposition home or self-care (01) ==
LOC: ED 13:56
DX: J10.1 Influenza due to other identified influenza virus with other respiratory manifestations (principal); Z91.018 Allergy to other foods; Z91.048 Other nonmedicinal substance allergy status
CPT/HCPCS: 36415; 80053; 84702; 85025; 99282; A9270-GY

== ENCOUNTER 2022-02-26 12:05 | Inpatient (IN) ==
[2022-02-26] MEDS ORDERED: Lactated Ringers 1000 ml BAG 1,000 ML IV ONE (13:28)
[2022-02-26] MEDS ORDERED: Buffered Lidocaine 1% SYRIN 1 ml INTRADERM ONE (13:28)
[2022-02-26] MEDS ORDERED: Oxytocin in LR 20 UNITS/1,000 ML BAG IVPB SCH (14:00)
[2022-02-26] MEDS ORDERED: Lactated Ringers 1000 ml BAG 1,000 ML IV SCH (14:00)
[2022-02-26] MEDS ORDERED: Calcium Carb (TUMS) 500 mg CHEW TAB PO PRN (14:14)
[2022-02-26 16:00] LABS: Urine Benzodiazepine Screen None Detected (None Detect); Urine Cannabinoids Screen None Detected (None Detect); Urine Opiates Screen None Detected (None Detect)
[2022-02-26] MEDS ORDERED: Dibucaine 1% OINT 28.35 GM TUBE PR PRN (22:43)
[2022-02-26] MEDS ORDERED: Glycerin ADULT 2.4 gm SUPP PR PRN (22:43)
[2022-02-26] MEDS ORDERED: Witch Hazel PAD JAR TOPICAL PRN (22:43)
[2022-02-27 07:20] LABS: ABS Basophils 0.1 10^3/ul (0-0.2); ABS Lymphocytes 2.3 10^3/ul (1.0-4.8); ABS Monocytes 1.2 10^3/ul (0-0.8); ABS Neutrophils 11.2 10^3/ul (1.5-7.7); Eosinophil % 0.2 %; Hematocrit 32 % (35-47); Hemoglobin 10.9 g/dL (12.0-16.0); Lymphocyte % 15.7 %; Mean Corpuscular HGB Conc 35 g/dL (31-36); Mean Corpuscular Hemoglobin 30 pg (27-31); Mean Corpuscular Volume 88 fL (80-97); Mean Platelet Volume 8.9 fL (7.4-10.4); Platelet Count 218 10^3/uL (150-450); Red Cell Distribution Width 14 % (10-15); White Blood Count 14.8 10^3/uL (3.5-10.8)
[2022-02-28 04:25] VITALS: BP 101/67
== END 2022-02-28 10:21 | disposition home or self-care (01) | DRG 560 ==
LOC: MCHOBOUT 12:05 → MCHOB 13:41
PROVIDERS: ADMIT Midwife; ATTEND Midwife